=== PATIENT | male | born 1970 | race Caucasian/White ===

== ENCOUNTER 2018-03-06 14:54 | Emergency (ER) | payer OTHER ==
[2018-03-06 15:23] VITALS: RESP 16; TEMP 97.8
[2018-03-06] MEDS ORDERED: PROPARACAINE HCL 0.5% OPHTHALMIC SOL ONE (15:50)
[2018-03-06 17:02] VITALS: BP 135/90; PULSE 68; O2SAT 97
[2018-03-06] MEDS ORDERED: PROPARACAINE HCL 0.5% OPHTHALMIC SOL OP ONE (17:45)
== END 2018-03-06 16:11 | disposition home or self-care (01) | DRG 125 ==
LOC: ED 14:54
DX: S05.02XA Injury of conjunctiva and corneal abrasion without foreign body, left eye, initial encounter (principal)
CPT/HCPCS: 99282; 99283; A9270-GY